=== PATIENT | female | born 1990 | race Hispanic/Latino ===

== ENCOUNTER → 2018-03-08 | Outpatient (CLI) | payer BC ==
--- NOTE | 2018-03-08 16:51 | Diagnostic Imaging Report ---
PROCEDURE:US ABDOMEN LIMITED COMPARISON:None. INDICATIONS:RUQ PAIN TECHNIQUE: Segura-scale and color doppler transverse and longitudinal images of the right upper quadrant of the abdomen were obtained. FINDINGS: Slightly limited examination due to patient body habitus. Liver: 14.2 cm in right mid-clavicular line. Increased echogenicity. There is focal fatty sparing adjacent to the gallbladder. No masses. Main portal vein: 0.9 cm Gallbladder: No wall thickening, stones, sludge, or pericholecystic fluid Common Bile Duct: 0.3 cm Sonographic Velasquez's sign: Negative Right kidney: 11.4 cm. Normal echogenicity. No solid masses or hydronephrosis. Pancreas: The visualized portions are unremarkable. Inferior vena cava: Patent Aorta: Within normal limits Ascites: None in the right upper quadrant of the abdomen. CONCLUSION: Diffuse hepatic steatosis. No gallbladder abnormality. Dictated by: Josh Hummel M.D. on 03/08/2018 at 16:57 Electronically approved by: Josh Hummel M.D. on 03/08/2018 at 16:57
== END ==
LOC: US 15:32
PROVIDERS: ATTEND Internal Medicine Gastroenterology
DX: R10.11 Right upper quadrant pain (principal)
CPT/HCPCS: 76705